=== PATIENT | male | born 1990 | race African-American/Black ===

== ENCOUNTER 2021-07-17 13:23 | Emergency (ER) | payer OTHER ==
[~2021-07-17] VITALS: Ht 182.9 cm; Wt 95.3 kg
[~2021-07-17 13:23] MED LIST: AMOXICILLIN 50500 MG PO; FLEXERIL PO; MOBIC15 MG PO; NAPROSYN500 MG PO
[2021-07-17 14:14] LABS: URINE BILIRUBIN NEGATIVE (Negative); URINE BLOOD NEGATIVE (Negative); URINE CLARITY CLEAR; URINE COLOR YELLOW; URINE GLUCOSE-RANDOM* NEGATIVE (Negative); URINE KETONES NEGATIVE (Negative); URINE LEUKOCYTES-REFLEX NEGATIVE (Negative); URINE NITRITE-REFLEX NEGATIVE (Negative); URINE PROTEIN (DIPSTICK) NEGATIVE (Negative); URINE UROBILINOGEN 0.2 E.U./dl (0.2-1.0)
[2021-07-17 14:33] LABS: ABSOLUTE NEUTROPHILS 7.3 thou/uL (1.4-8.2); BASOPHILS 0.5 % (0.0-2.0); EOSINOPHILS 0.1 % (0.0-3.0); HEMATOCRIT 43.4 % (42.0-52.0); HEMOGLOBIN 14.3 gm/dL (14.0-18.0); LYMPHOCYTES 15.7 % (24.0-44.0); MCV 81.8 fL (80.0-100.0); PLATELET COUNT 358 thou/uL (150-400); POLYS 74.7 % (36.0-66.0); RDW 14.2 % (10.5-14.5); WBC 9.7 thou/uL (4.0-11.0)
[2021-07-17 14:42] LABS: CALCIUM 9.2 mg/dL (8.5-10.1); POTASSIUM 3.7 mmol/L (3.5-5.1)
[2021-07-17 14:47] LABS: ALBUMIN 3.7 g/dL (3.4-5.0); TOTAL BILIRUBIN 0.3 mg/dL (0.2-1.0); TOTAL PROTEIN 8.4 g/dL (6.4-8.2)
[2021-07-17] MEDS ORDERED: DOXYCYCLINE 10100 MG PO (19:39)
[2021-07-17 20:10] VITALS: BP 127/70
== END 2021-07-17 20:10 | disposition home or self-care (01) ==
LOC: ER 13:23
PROVIDERS: Emergency Medicine
DX: R30.0 Dysuria (principal); N45.1 Epididymitis; N50.812 Left testicular pain; F17.210 Nicotine dependence, cigarettes, uncomplicated; F12.90 Cannabis use, unspecified, uncomplicated; Z79.899 Other long term (current) drug therapy; Z88.6 Allergy status to analgesic agent